=== PATIENT | female | born 1955 | race Caucasian/White ===

== ENCOUNTER 2016-11-01 19:27 | Emergency (ER) | payer OTHER ==
[2016-11-01 23:36] VITALS: BP 123/76
== END 2016-11-01 23:08 | disposition home or self-care (01) ==
LOC: ED 19:27
DX: J02.9 Acute pharyngitis, unspecified (principal); E78.00 Pure hypercholesterolemia, unspecified; Z88.2 Allergy status to sulfonamides
CPT/HCPCS: J0696